=== PATIENT | female | born 1960 | race Caucasian/White ===

== ENCOUNTER 2021-04-21 09:31 | Emergency (ER) | payer MEDICARE, OTHER, SELFPAY ==
[2021-04-21 09:40] VITALS: BP 143/79; PULSE 98; RESP 16; TEMP 37.1; O2SAT 99; BMI 37.8
--- NOTE | 2021-04-21 10:04 | DI.RAD.S_ITS ---
PROCEDURE: XR CHEST 2V INDICATIONS: cough x 2 weeks TECHNIQUE: 2 views of the chest were acquired. COMPARISON: None. FINDINGS: Surgical changes and devices: None. Lungs and pleura: Lungs are clear. No pleural effusions or pneumothorax. Mediastinum: Mediastinal contours are normal. Heart size is normal. Atherosclerotic vascular calcification noted in the aortic arch. Bones and chest wall: No suspicious bony abnormalities. Soft tissues appear unremarkable. Mild convex right thoracolumbar scoliosis noted. IMPRESSION: No acute cardiopulmonary findings Dictated by: Matthew Melara M.D. on 04/21/2021 at 9:45 Approved by: Matthew Melara M.D. on 04/21/2021 at 9:55
[2021-04-21 10:20] LABS: COVID19 -Nasal RAPID Negative (Negative)
--- NOTE | 2021-04-21 10:37 | ED_ITS ---
HPI - General Adult General Chief complaint: Upper Respiratory Symptoms Stated complaint: bronchitis, coughing for 2wks Time Seen by Provider: 04/21/21 10:29 Source: patient Mode of arrival: Ambulatory Limitations: no limitations History of Present Illness HPI narrative: Patient is a 60-year-old female who is vacationing in this area who has been having a cough and sinus congestion for 2 weeks. She has not been on any medications for this. She states that her flight has needed to be delayed because of the cough because the airline would not let her on secondary to the COVID-19 pandemic. She is not having any fevers. She has also having a rash on her back. States this is been here for approximately 1 year. She has not been able to get in to see her primary doctor because of the COVID-19 pandemic as well. She has been on steroids in the past for this and did help for a short period of time but the taper ran out and the rash came back again. She also has rheumatoid arthritis. She has missed her Orencia shot and is asking for refill of this. Related Data Previous Rx's Medication Instructions Recorded abatacept 125 mg/mL subcutaneous 125 mg SUBCUT QWEEK #4 ml 04/21/21 auto-injector (Orencia ClickJect) benzonatate 100 mg capsule 100 mg PO TID PRN #20 cap 04/21/21 (Tessalon Judy) prednisone 20 mg tablet 20 mg PO DAILY #20 tab 04/21/21 Allergies Allergy/AdvReac Type Severity Reaction Status Date / Time erythromycin base Allergy Unknown Verified 04/21/21 09:46 Penicillins Allergy Unknown Verified 04/21/21 09:46 Review of Systems Constitutional Constitutional: Denies fever(s) ENT Comments: Sinus congestion Cardiovascular Cardiovascular: Denies chest pain Respiratory Comments: Cough and shortness of breath Gastrointestinal Comments: No abdominal pain Genitourinary Genitourinary: Reports system reviewed and no additional complaints, except as documented Integumentary/Breasts Comments: Rash on her back Neurologic Neurologic: Reports system reviewed and no additional complaints, except as documented Psychiatric Psychiatric: Reports system reviewed and no additional complaints, except as documented Hematologic/Lymphatic On Anticoagulants: No Patient History Medical History Rheumatoid arthritis Smoker Social History Smoking Status: Current every day smoker Smoking Status: Current every day smoker alcohol intake frequency: 0-2 drinks per day Substance Use Type: does not use Exam Initial Vital Signs Initial Vital Signs: Vital Signs Temperature 98.7 F 04/21/21 09:40 Pulse Rate 98 H 04/21/21 09:40 Respiratory Rate 16 04/21/21 09:40 Blood Pressure 143/79 H 04/21/21 09:40 Pulse Oximetry 99 04/21/21 09:40 Const General: cooperative and healthy appearing [facility] Head: normal to inspection and normocephalic Eyes General: appearance normal, both eyes and all related structures Chest Chest: normal inspection of the chest Resp Effort & Inspection: normal respiratory effort Auscultation: clear to auscultation bilaterally Cardio Rate: regular rate Rhythm: regular rhythm Skin Other: Patient has a rash on her back. Has some crusting. It is in various sta ges of healing. No pustules. No surrounding erythema. No vesicles. Neuro General: patient alert, patient awake and patient oriented x3 Extrem General: normal to inspection and capillary refill normal Psych Appearance: grossly normal and well kempt Course Orders Ordered: ED Orders 04/21/21 09:47 COVID19 -Nasal swab/Pre-Proc Stat 04/21/21 10:04 XR chest 2V Stat Vital Signs Vital signs: Vital Signs - 8 hr 04/21/21 09:40 Temperature 98.7 F Pulse Rate 98 H Respiratory Rate 16 Blood Pressure 143/79 H Pulse Oximetry 99 Medical Decision Making Lab Data Labs: Lab Results 04/21/21 Range/Units 09:47 SARS-CoV-2 (PCR) Negative (Negative) Imaging Data Chest x-ray: Attestation: I personally reviewed and interpreted this imaging study as follows: My Impression: No pneumonia, no pneumothorax, no acute process MDM Narrative Medical decision making narrative: Patient is afebrile. Clear lung exam. Not in any respiratory distress. Chest x-ray shows no acute pathology per my read. Her COVID is negative. No indication for antibiotics. No indication for an inhaler. We did discuss the use of antitussive medications. We also discussed the use of antihistamines. Unsure of the exact etiology of the rash on her back. Does not appear to be an infectious etiology. Did get better with ster oids although the course of the steroids then did before was completely resolved and she has not been able to get back in to get re-evaluated. Will place her on a steroid taper today. This will probably also help her cough. She is also asking for refill of her rheumatoid arthritis medications. No further workup needed in the emergency department. Discharge Plan Departure Patient Disposition: Home Clinical Impression: Rheumatoid arthritis, Rash, Cough Instructions: Cough Activity Restrictions/Additional Instructions: Prescriptions for medications were electronically transmitted to [facility] in [place]. Please start taking them as directed. It is important that you may contact with your primary doctor when you return home to discuss a referral to see dermatology. I also recommend that you start taking an antihistamine such as Claritin or Ibeth or Zyrtec. This can be purchased [id number]. The generic versions of this medication is appropriate. Return to the emergency department for any new or worsening symptoms Prescriptions: New benzonatate [Tessalon Perles] 100 mg capsule 100 mg PO TID PRN (Reason: cough) Qty: 20 RF: 0 prednisone 20 mg tablet 20 mg PO DAILY Qty: 20 RF: 0 Orencia ClickJect 125 mg/mL auto-injector 125 mg SUBCUT QWEEK Qty: 4 RF: 0
== END 2021-04-21 10:57 | disposition home or self-care (01) ==
PROVIDERS: Emergency Provider Emergency Medicine
DX: R05 Cough (principal); R21 Rash and other nonspecific skin eruption; M06.9 Rheumatoid arthritis, unspecified; Z20.822 Contact with and (suspected) exposure to COVID-19
CPT/HCPCS: 71046; 87635; 99283; C9803